=== PATIENT | male | born 1990 | race Caucasian/White ===

== ENCOUNTER 2020-02-18 10:02 | Emergency (ER) | payer OTHER, SELFPAY ==
--- NOTE | ~2020-02-18 | XR_ITS ---
EXAMINATION: XR foot RT min 3V DATE: 02/18/2020 10:33 INDICATION: Right foot pain TECHNIQUE: Dorsoplantar, lateral, and 2 oblique views of the right foot were obtained. COMPARISON: None. FINDINGS: There is no fracture, dislocation, or subluxation. The bones, soft tissues, and joint space s are normal. IMPRESSION: 1. No acute osseous abnormality. Reviewed, dictated and finalized at location A.
[2020-02-18 10:12] VITALS: BP 144/78; PULSE 77; RESP 14; TEMP 37.1; O2SAT 99
--- NOTE | 2020-02-18 10:21 | ED.GENADULT ---
HPI - General Adult General Chief complaint: Extremity Injury, Lower Stated complaint: right foot injury Time Seen by Provider: 02/18/20 10:21 Source: patient Mode of arrival: ambulatory Limitations: no limitations History of Present Illness HPI narrative: 29-year-old male patient presents to the [facility] with complaints of right foot pain since yesterday after he kicked his closet door. Patient states he iced it all night last night. Denies taking any Tylenol or ibuprofen for today. Patient states he is able to walk on it but does have pain when doing so. Denies any numbness or tingling to the toes. Related Data Home Medications Medication Instructions Recorded Confirmed No Home Medications 02/18/20 02/18/20 Allergies Allergy/AdvReac Type Severity Reaction Status Date / Time No Known Allergies Allergy Verified 02/18/20 10:19 Review of Systems Review of Systems: Narrative: CONSTITUTIONAL: Denies fever, chills, or sweats. EYES: Denies visual changes, redness, or discharge. ENT: Denies rhinorrhea, congestion, sore throat, or otalgia. CARDIOVASCULAR: Denies chest pain, palpitations, or edema. RESPIRATORY: Denies cough or dyspnea. GASTROINTESTINAL: Denies abdominal pain, nausea, vomiting, or diarrhea. GENITOURINARY: Denies dysuria or hematuria. SKIN: Denies rash or itching. MUSCULOSKELETAL: Denies back pain, joint pain, or myalgia. Positive right foot pain NEUROLOGIC: Denies headache, numbness, or weakness. PSYCHIATRIC: Denies anxiety or depression. PMFSH Comments At the time of my signature I agree with nursing past medical history, surgical, social, and family history. There is no relevant family history pertinent to the presenting complaint. Exam Narrative: Exam Narrative: GENERAL: Well-appearing, well-nourished, and in no acute distress. HEAD: Normocephalic, atraumatic. EYES: PERRLA and EOMI. ENT: Nares clear, no rhinorrhea or epistaxis. Mucous membranes moist. NECK: Supple. No lymphadenopathy CHEST: Clear to auscultation. No respiratory distress. HEART: Regular rate and rhythm. No murmur heard. Normal peripheral pulses. ABDOMEN: Soft, nontender, nondistended, normal active bowel sounds. EXTREMITIES: Patient able to bear weight and ambulate but complains of pain to the lateral right foot area. No surface trauma, ecchymosis, erythema, lesions, ulcers or break in skin integrity. The R foot is without obvious asymmetry or deformity when compared to the L foot. No bony step-off, nontender to palpation over the toes, midfoot or hindfoot or sole. Tenderness noted to the lateral side of the right foot. Normal plantar/dorsiflexion, inversion/eversion. Distal motor and neurovascular status are intact SKIN: Warm, dry, no rash. NEURO: No focal deficits. Alert and oriented x3. Course Reevaluation(s) Reevaluation #1: Reevaluated patient after x-ray had resulted. Discussed with him there is no broken bones and most likely this is a sprain. Discussed with patient our plan of care is to discharge him home with an Jones wrap to the foot. Discussed with him he should keep it elevated, Tylenol and ibuprofen for the pain, ice it as needed. Patient verbalized understanding of this denies any other questions or concerns at this time. Date: 02/18/20 Time: 10:44 Vital Signs Vital signs: Vital Signs Temperature 37.1 C 02/18/20 10:12 Pulse Rate 77 02/18/20 10:12 Respiratory Rate 14 02/18/20 10:12 Blood Pressure 144/78 H 02/18/20 10:12 Pulse Oximetry 99 02/18/20 10:12 Temperature 37.1 C 02/18/20 10:12 Pulse Rate 77 02/18/20 10:12 Respiratory Rate 14 02/18/20 10:12 Blood Pressure 144/78 H 02/18/20 10:12 Pulse Oximetry 99 02/18/20 10:12 Vital signs reviewed. The patient has been informed that they may have pre-hypertension or Hypertension based on a BP reading in the department. I recommend that the patient call the primary care provider listed on their discharge instructions or a physician of t
== END 2020-02-18 10:45 | disposition home or self-care (01) ==
PROVIDERS: Emergency Provider Nurse Practitioner Family
DX: S93.601A Unspecified sprain of right foot, initial encounter (principal); W22.8XXA Striking against or struck by other objects, initial encounter
CPT/HCPCS: 73630; 99203; G0463